=== PATIENT | female | born 1975 | race African-American/Black ===

== ENCOUNTER 2017-07-22 09:30 | Emergency (ER) | payer OTHER ==
[~2017-07-22] VITALS: Ht 160 cm; Wt 101.6 kg
[~2017-07-22 09:30] MED LIST: ACETAMINOPHEN-1 EAC1 PO; AFRIN15 ML NS; AMOXICILLIN 50500 MG PO; AUGMENTIN 875875 MG PO; BACTRIM DS TAB1 EACH PO; FLONASE 0.05%50 MCG NASAL; GLUCOPHAGE XR750 MG PO; JANUMET 50-1,01 EACH PO; LIDOCAINE VISC100 M1 SWISH&SPIT; LORATIDINE 10 M10 M1 PO; MEDROLDOSEPACK PO; NOHOMEMEDICATIONS; PREDNISONE 20 M20 M1 PO; PROMETHAZI6.25 MG/2 PO; PROMETHAZINE-D120 ML PO; ROBAXIN500 MG PO; VENTOLIN HFA 1818 GM INH; ZPAK PO
[2017-07-22 09:37] VITALS: BP 163/99
[2017-07-22] MEDS ORDERED: JANUMET 50-1,01 EACH PO (09:39)
[2017-07-22] MEDS ORDERED: PREDNISONE 20 M20 M1 PO (10:11)
[2017-07-22] MEDS ORDERED: NORCO 5-325 TA1 EACH PO (10:11)
[2017-07-22] MEDS ORDERED: VENTOLIN HFA 1818 GM INH (10:11)
[2017-07-22] MEDS ORDERED: ZPAK PO (10:11)
--- NOTE | 2017-07-22 15:48 | EKG ---
[place] [address] ELECTROCARDIOGRAM REPORT Name: EUGENIA CONNELL Room: [facility]#: [id number] Admission: 07/22/17 Attend Phys: Discharge: Date of : 77 Report #: [id number] THIS REPORT FOR: //name// [facility] ED Test Date: 2017-07-22 Test Time: 10:11:03 Pat Name: EUGENIA CONNELL Department: Room: Gender: F Tattooer: Sallie ALFORD : 1975 Requested By: Henry Bautista Order Number: [id number] MD: Cirilo Villagomez Measurements Intervals [place] Rate: 83 P: 37 PA: 118 QRS: 51 QRSD: 88 T: 58 QT: 444 QTc: 522 Interpretive Statements Sinus rhythm Borderline short PA interval Borderline T abnormalities, anterior leads Compared to ECG 08/27/2015 17:10:39 no change Electronically Signed On 07-22-2017 15:48:04 CDT by Cirilo Villagomez [email or web address] <ELECTRONICALLY SIGNED> By: Cirilo Villagomez MD, [facility] 07/22/17 1548 1011 1011 Cirilo Villagomez MD, FACC /EPI
== END 2017-07-22 10:26 | disposition home or self-care (01) ==
LOC: M.ERS 09:30
DX: J40 Bronchitis, not specified as acute or chronic (principal); E11.9 Type 2 diabetes mellitus without complications

== ENCOUNTER 2017-08-25 12:33 | Inpatient (IN) | payer OTHER ==
[~2017-08-25] VITALS: Ht 162.6 cm; Wt 102.1 kg
[~2017-08-25 12:33] MED LIST changes: +NORCO 5-325 TA1 EACH PO
[2017-08-25 12:43] VITALS: BP 143/95
[2017-08-25 13:01] LABS: URINE BILIRUBIN NEGATIVE (Negative); URINE BLOOD 1+ (Negative); URINE CLARITY CLEAR; URINE COLOR YELLOW; URINE GLUCOSE-RANDOM 2+ (Negative); URINE KETONES 1+ (Negative); URINE LEUKOCYTES-REFLEX NEGATIVE (Negative); URINE NITRITE-REFLEX NEGATIVE (Negative); URINE PROTEIN 1+ (Negative); URINE SPECIFIC GRAVITY >= 1.030 (1.005-1.030); URINE UROBILINOGEN 0.2 E.U./dl (0.2-1.0)
[2017-08-25 13:03] LABS: ABSOLUTE BASOPHILS 0.2 thou/uL (0.0-0.2); ABSOLUTE EOSINOPHILS 0.1 thou/uL (0.0-0.7); ABSOLUTE LYMPHOCYTES 2.2 thou/uL (0.8-5.3); ABSOLUTE MONOCYTES 0.4 thou/uL (0.0-1.2); ABSOLUTE NEUTROPHILS 5.6 thou/uL (1.6-8.1); BASOPHILS 2.7 %; EOSINOPHILS 0.8 %; HEMATOCRIT 38.3 % (37.0-47.0); HEMOGLOBIN 13.9 gm/dL (12.0-15.0); LYMPHOCYTES 25.8 %; MCH 31.5 pg (26.0-34.0); MCHC 36.2 g/dL (28.0-37.0); MCV 87.1 fL (80.0-100.0); MONOCYTES 4.7 %; MPV 9.8 fl. (7.2-11.1); NUCLEATED RBCS 0 /100WBC; PLATELET COUNT* 165 thou/uL (150-400); RDW-CV 13.4 % (10.5-14.5); WBC 8.5 thou/uL (4.0-11.0)
[2017-08-25 13:13] LABS: SQUAMOUS 0-3 Few /LPF (0-3)
[2017-08-25 13:14] LABS: BACTERIA-REFLEX 1-9 Few /HPF (None Seen); CASTS None Seen /LPF (None Seen); CRYSTALS None Seen /LPF (None Seen); MUCUS 0-3 Light strn/LPF (None Seen); URINE RBC 3-10 Few /HPF (0-2); URINE WBC-REFLEX 0-5 Rare /HPF (0-5)
[2017-08-25 14:31] LABS: ALBUMIN 2.9 g/dL (3.4-5.0); BUN 9 mg/dL (7-18); CALCIUM 7.3 mg/dL (8.5-10.1); CHLORIDE 100 mmol/L (98-107); CREATININE 0.8 mg/dL (0.6-1.3); GLUCOSE 356 mg/dL (70-99); LIPASE 1454 U/L (73-393); POTASSIUM 4.7 mmol/L (3.5-5.1); TOTAL BILIRUBIN 1.4 mg/dL (<0.1-1.0); TROPONIN-I LEVEL <0.06 ng/mL (<0.06)
[2017-08-25 14:36] LABS: ALKALINE PHOSPHATASE 40.7 U/L (46-116); ANION GAP 13 mmol/L (7-16); CO2 21 mmol/L (21-32)
[2017-08-25 14:38] LABS: SGPT 24.2 U/L (30-65); TOTAL PROTEIN 6.1 g/dL (6.4-8.2)
[2017-08-25 14:39] LABS: SODIUM 134 mmol/L (136-145)
[2017-08-25 14:57] LABS: SGOT 43.2 U/L (15-37)
[2017-08-25 15:59] VITALS: BP 166/94
[2017-08-25 16:00] VITALS: BP 110/68
[2017-08-25 16:59] VITALS: BP 132/91
[2017-08-25 20:00] VITALS: BP 117/73
[2017-08-25 21:43] LABS: CHOLESTEROL 294 mg/dL (<200); HDL CHOLESTEROL 30 mg/dL (>40); TC:HDL 9.8 Ratio (Not establshd)
[2017-08-25 21:45] LABS: SERUM ASSESSMENT Gross Lipemia
[2017-08-25 22:10] LABS: TRIGLYCERIDE 2477 mg/dL (<150); VLDL 495 mg/dL (<40)
[2017-08-25 22:11] LABS: LDL CHOLESTEROL ND mg/dL (<100)
--- NOTE | 2017-08-26 04:33 | NUR ---
ASSUMED CARE OF PT AT 1900 PT ALERT AND ORIENTED XX VS AND ASSESSMENT STABLE PT HAD PAIN MEDS ONCE THEN SLEPT THROUGH THE NIGHT. WILL CONTINUE PLAN OF CARE.
[2017-08-26 04:38] LABS: HEMATOCRIT 34.1 % (37.0-47.0); MCH 29.1 pg (26.0-34.0); MCHC 33.2 g/dL (28.0-37.0); MCV 87.7 fL (80.0-100.0); MPV 10.7 fl. (7.2-11.1); RBC 3.89 mil/uL (4.20-5.00); RDW-CV 13.5 % (10.5-14.5); WBC 6.8 thou/uL (4.0-11.0)
[2017-08-26 04:55] LABS: HEMOGLOBIN 11.3 gm/dL (12.0-15.0)
[2017-08-26 05:00] LABS: ALBUMIN 2.7 g/dL (3.4-5.0); CALCIUM 7.1 mg/dL (8.5-10.1); CREATININE 0.9 mg/dL (0.6-1.3); TOTAL BILIRUBIN 0.3 mg/dL (<0.1-1.0); TOTAL PROTEIN 6.3 g/dL (6.4-8.2)
[2017-08-26 05:03] LABS: POTASSIUM 3.6 mmol/L (3.5-5.1)
[2017-08-26 08:48] VITALS: BP 129/83
--- NOTE | 2017-08-26 08:50 | NUR ---
ASSUMED CARE OF PT AROUND 0730 THIS AM. REFER TO ASSESSMENT. PT GIVEN IV FENTANYL FOR EPIGASTRIC PAIN THIS AM. ABDOMINAL US ORDERED FOR THIS AM. PT CONCERNED ABOUT ACCUCHECK RESULTS AND STATES SHE HAS NEVER HAD TO MANAGE HER BLOOD SUGARS AT HOME. NO OTHER CONCERNS AT THIS TIME. CLWR. WCTM.
--- NOTE | 2017-08-26 09:13 | EKG ---
[place] [address] ELECTROCARDIOGRAM REPORT Name: EUGENIA CONNELL Room: [address] IN [facility].#: [id number] Admission: 08/25/17 Attend Phys: Shannan Moralez Discharge: Date of : 77 Report #: [id number] THIS REPORT FOR: //name// [facility] ED Test Date: 2017-08-25 Test Time: 13:00:06 Pat Name: EUGENIA CONNELL Department: Room: Gender: Cottage Attendant: Sallie MCKENZIE : 1975 Requested By: China Lozoya Order Number: [id number] MD: Stephan Piedra Measurements Intervals [place] Rate: 100 P: 35 WI: 115 QRS: 34 QRSD: 83 T: QT: 425 QTc: 549 Interpretive Statements Sinus tachycardia Borderline abnrm T, anterolateral leads Prolonged QT interval Compared to ECG 07/22/2017 10:11:03 Prolonged QT interval now present Sinus rhythm no longer present T-wave abnormality no longer present Electronically Signed On 08-26-2017 9:12:53 CDT by Stephan Piedra [email or web address] <ELECTRONICALLY SIGNED> By: Stephan Piedra MD, FAC 08/26/17 0912 1300 1300 Stephan Piedra MD, [facility] /EPI
[2017-08-26 11:48] VITALS: BP 129/83
--- NOTE | 2017-08-26 12:08 | NUR ---
TRANSPORTATION HERE FOR PT TO GO TO [place] FOR EGD AT THIS TIME. CONSENT NOT OBTAINED. PT WISHES TO SPEAK WITH PHSYCIAN FIRST.
[2017-08-26 12:51] VITALS: BP 149/92
--- NOTE | 2017-08-26 15:26 | NUR ---
PT RETURNED FROM EGD AROUND 1514. PT HAS C/O DIANE. PRN IV FENTANYL ADMINISTERED. PT GIVEN CLEAR LIQUID DIET. FAMILY AT BEDSIDE. NO OTHER CONCERNS AT THIS TIME. CLWR. WCTM.
[2017-08-26 16:10] VITALS: BP 141/85
--- NOTE | 2017-08-26 17:09 | NUR ---
PT PROGRESSING TOWARDS GOALS THIS SHIFT. EGD AND ABD US COMPLETED THIS SHIFT. PT STARTED ON MEDS FOR CHOLESTEROL. SSI TITRATED PER PROTOCOL FOR ELEVATED BLOOD SUGARS. PT'S PAIN MANAGED WITH PRN IV FENTANYL. FAMILY AT BEDSIDE THIS SHIFT. PT ADVANCED TO CLEAR LIQUID DIET THIS EVENING AND TOLERATING AT THIS TIME. NO OTHER CONCERNS AT THIS TIME. CLWR. WCTM.
[2017-08-26 20:20] VITALS: BP 149/79
[2017-08-26 22:10] LABS: GLYCOHEMOGLOBIN (HGB A1C) 10.3 % (4.8-5.6)
[2017-08-27 04:47] LABS: ALBUMIN 2.5 g/dL (3.4-5.0); CALCIUM 7.2 mg/dL (8.5-10.1); CREATININE 0.8 mg/dL (0.6-1.3); POTASSIUM 3.3 mmol/L (3.5-5.1); TOTAL BILIRUBIN 0.4 mg/dL (<0.1-1.0); TOTAL PROTEIN 6.4 g/dL (6.4-8.2)
--- NOTE | 2017-08-27 05:03 | NUR ---
PATIENT ALERT AND ORIENTED. VITALS STABLE. RA. PAIN MEDICATION GIVEN X 1, EFFECTIVE. DENIES NAUSEA. TOLERATING DIET WELL. UP INDEPENDENTLY. FLUIDS INFUSING PER ORDER. HOURLY ROUNDS. NURSING WILL CONTINUE TO MONITOR.
[2017-08-27 08:03] VITALS: BP 123/88
--- NOTE | 2017-08-27 10:08 | NUR ---
ASSUMED CARE OF PT THIS AM AROUND 0715- UPON ASSESSMENT PT NOTED TO BE RESTING IN BED, WATCHING TV- PT A&O X4- CONTINENT OF BOWEL AND BLADDER- UP AD-RAMIREZ WITH STEADY GAIT NOTED- LCTA, RESP EVEN AND UN-LABORED- VSS, O2 SAT 985 ON RA- ABDOMEN SOFT/ROUND/TENDER, BS HYPOACTIVE THIS AM- PT REPORTS LAST BM 08/25/17 TO BE HARD AND FEELS CONSTIPATED- ORDERED MIRALX GIVEN THIS AM INDICATED- PT TOLERATING CLEAR LIQUIDS THIS AM WITH DIET TO BE ADVANCED TO FULL LIQUIDS WITH LUNCH- BS MONITORED ORDERED, SSI PRESCIBED- IV TO RIGHT AC INTACT, IVF INFUSING ORDERED- BLOOD CULTURES REMAIN NEGATIVE THIS AM- PT REPORTS PAIN 2/10 TO ABDOMEN, DENIES NEED FOR PAIN MEDICATIONS- CALL LIGHT AND PERSONAL BELONGINGS WITH IN REACH- HOURLY ROUNDS IN PLACE R/T SAFETY/NEEDS- ALL NEEDS MET AT THIS TIME- WCTM
[2017-08-27] MEDS ORDERED: FENOFIBRATE160 MG PO (11:58)
[2017-08-27] MEDS ORDERED: NIACIN 500 MG500 M1 PO (11:59)
[2017-08-27] MEDS ORDERED: PROTONIX40 M1 PO (12:00)
[2017-08-27 12:56] VITALS: BP 123/88
[2017-08-27 15:57] VITALS: BP 139/94
--- NOTE | 2017-08-27 16:14 | NUR ---
PT CURRENLTY RESTING IN BED WATCHING TV- IV TO RIGHT AC NOTED TO CLOT OFF, NEW 20 GAUGE IV PLACED TO LEFT FA THIS SHIFT WITH IVF INFUSING PRESCIBED- DIET ADVANCED THIS SHIFT FROM FULL LIQUIDS WITH LUNCH TO DM DIET REGULAR FOR LUNCH- GI HERE TO ASSESS THIS SHIFT WITH GASTRIC EMPTY TEST ORDERED AND GOING TO BE COMPLETED IN AM TO EVALUATE FOR NEED FOR REGLAN- PT TO BE NPO AT MIDNIGHT FOR GET IN AM- PT REPORTS TO HAVE HAD BM X3 THIS SHIFT POST MIRALAX ADMINISTRATION THIS AM, BUT STILL REPORTS FEELING OF BLOATNESS TO UPPER ABDOMEN-NUTRITION CONSULT INTIATED THIS SHIFT FOR DM EDUCATION- CALL LIGHT AND PERSOANL BELONGINGS WITH IN REACH- ALL NEEDS MET AT THIS TIME-WCTM
--- NOTE | 2017-08-27 16:41 | NUR ---
SW met with pt to complete initial assessment, introduce self, and SW role. Pt children visiting pt. Pt alert, oriented, pleasant. Pt lives at home with children support available if needed. Pt does not anticipate any dc needs at this time. SW to follow.
[2017-08-27 20:30] VITALS: BP 146/87
--- NOTE | 2017-08-28 07:01 | NUR ---
Alert and oriented x 4. Up independently in the room. k+ was replaced and potassium was 3.9 this am. She has had nothing by mouth since midnight for gastric emptying test. Pain meds x 1 this shift. She slept well.
[2017-08-28 08:10] VITALS: BP 141/76
--- NOTE | 2017-08-28 13:09 | CON ---
[address] [address] CONSULTATION Name: EUGENIA CONNELL Room: [address] IN .R.#: [id number] Admission: 08/25/17 Attend Phys: Shannan Moralze Discharge: Date of : 77 Report #: [id number] THIS REPORT FOR: //name// CC: FAM unknown Lucia Hadley [facility] DATE OF SERVICE: 08/26/2017 ADDENDUM I had personally seen and examined the patient and reviewed labs and imaging studies. The patient with acute abdominal pain, which is mainly in the epigastric region. She presents with nausea, vomiting, which has been intermittent for several weeks. She also complains of gas, bloating and occasional constipation. Since admission, the patient was found to have elevated lipase and some thickening in the distal stomach and proximal small bowel. We will perform an upper endoscopy to further evaluate these findings. Meanwhile, we will continue to monitor labs and make sure that the lipase will normalize. Note that the liver enzymes are within normal limits, but the patient's triglyceride is near 2500. Her pancreatitis is most probably due to her triglyceridemia. <ELECTRONICALLY SIGNED> By: Lobito Weems MD 08/28/17 1309 1347 0004Farmaritza Weems MD /nt
--- NOTE | 2017-08-28 13:09 | CON ---
[address] [address] CONSULTATION Name: EUGENIA CONNELL Room: [address] IN .R.#: [id number] Admission: 08/25/17 Attend Phys: Shannan Moralez Discharge: Date of : 77 Report #: [id number] THIS REPORT FOR: //name// CC: FAM unknown Archie Hadley [facility] DICTATED BY: Gemma ROSAS DATE OF SERVICE: 08/26/2017 PRIMARY CARE PHYSICIAN: Dr. Archie Chapman. Please note at the time of this dictation, the patient was seen and physically examined by myself. REASON FOR CONSULTATION: Abdominal pain and nausea and elevated lipase. HISTORY OF THE PRESENT ILLNESS: This 41-year-old female presented to the Emergency Room with ongoing right upper quadrant pain and epigastric pain, which had progressively been getting worse over the last 3 days. The patient states she has had a horrible diet, eating everything including some very high fat foods. She also admits that she has been on 2 separate occasions, she was on Augmentin back earlier in the year and then most recently, Z-MARIAM for this ongoing sinus and bronchitis. She states she has not been feeling well for the past week to two weeks on top of all of this. She also complains that she has had a lot of gas and bloating for some time. She did take some digestive enzymes, which she states did help, but she has quit doing so some time ago. The patient has never seen a GI provider before or had any scopes. She states in the past she was told she had some acid reflux and she did take some medicine for that, but she has not been doing so for some time. ALLERGIES: No known drug allergies. MEDICATIONS: From home include Janumet one daily. PAST MEDICAL HISTORY: Diabetic. PAST SURGICAL HISTORY: None. FAMILY HISTORY: Mother had breast cancer and maternal grandmother had stomach issues. SOCIAL HISTORY: She does use alcohol on special occasions. Denies any alcohol or illegal [place] [address] CONSULTATION Name: EUGENIA CONNELL Room: [address] [place] [facility]#: [id number] Admission: 08/25/17 Attend Phys: Shannan Moralez Discharge: Date of : 77 Report #: [id number] REVIEW OF SYSTEMS: Twelve-point review of systems is essentially negative except what is mentioned in the HPI. PHYSICAL EXAMINATION: VITAL SIGNS: Temperature 37.6, pulse 103, respirations 15 and blood pressure 129/83. HEART: Regular rate and rhythm. LUNGS: Clear. ABDOMEN: Soft. Positive bowel sounds in all 4 quadrants with right upper quadrant to epigastric tenderness noted to palpation. LABORATORY DATA: Hemoglobin is 11.3, hematocrit 34.1, white count is 6.8 and platelets 131. Sodium 139, potassium 3.6, chloride 105, CO2 26, BUN is 7, creatinine 0.9, GFR is 84 and glucose is 266. Total bilirubin on admission was 1.4 and she is down to 0.3, alkaline phosphatase 40 and is 43 now, ALT was 24 and she is now 28, AST was 43 and she is now 22, lipase was 1454 and triglycerides were 2477. RADIOLOGICAL DATA: CT of the abdomen and pelvis showed some mild thickening of the distal stomach and proximal bowel as well. Also, ultrasound showed diffuse hepatic steatosis noted. IMPRESSION: 1. Abdominal pain. 2. Elevated lipase. 3. Elevated triglycerides. 4. Elevated liver function tests. 5. Thrombocytopenia. 6. Gas and bloating. 7. CT changes noted the thickening of the distal stomach and proximal bowel wall. PLAN: 1. Increase fluids 250 mL an hour. 2. EGD with Dr. Weems. 3. Consider hepatobiliary scan if above is negative. 4. Further recommendations to be made once Dr. Weems performs EGD. 5. The patient will need to be on medications for her triglycerides. Thank you for allowing us to participate in this patient's care. Please do not hesitate to call with any questions in regard to this consult. ADDENDUM I had personally seen and examined the patient and [place] [address] CONSULTATION Name: EUGENIA CONNELL Room: [address] IN ..#: [id number] Admission: 08/25/17 Attend Phys: Shannan Moralez Discharge: Date of : 77 Report #: [id number] studies. The patient with acute abdominal pain, which is mainly in the epigastric region. She presents with nausea, vomiting, which has been intermittent for several weeks. She also complains of gas, bloating and occasional constipation. Since admission, the patient was found to have elevated lipase and some thickening in the distal stomach and proximal small bowel. We will perform an upper endoscopy to further evaluate these findings. Meanwhile, we will continue to monitor labs and make sure that the lipase will normalize. Note that the liver enzymes are within normal limits, but the patient's triglyceride is near 2500. Her pancreatitis is most probably due to her triglyceridemia. <ELECTRONICALLY SIGNED> By: Lobito Weems MD 08/28/17 1309 1149 [id number] Weems MD /nt
[2017-08-28 16:04] VITALS: BP 149/89
[2017-08-28 16:19] VITALS: BP 123/88
--- NOTE | 2017-08-28 17:29 | NUR ---
PATIENT LEFT UNIT AT 1730 AMBULATORY WITH DAUGHTER. EDUCATED PATIENT AND DAUGHTER ON DISCHARGE INSTRUCTIONS AND NEW MED SCRIPTS. PATIENT AND DAUGHTER VERBALIZED UNDERSTANDING. IV DC'D. ALL BELONGINGS LEFT WITH PATIENT.
== END 2017-08-28 17:40 | disposition home or self-care (01) | DRG 439 ==
LOC: M.ERS 12:33 → M.ORTHSURG 15:29 → M.TBA-ER 15:29 → M.ORTHSURG 15:52
PROVIDERS: Physician Assistant; ADMIT Internal Medicine
PROC: 0DJ08ZZ Inspection of Upper Intestinal Tract, Via Natural or Artificial Opening Endoscopic (ICD-10-PCS; principal; 2017-08-26)
DX: K85.10 Biliary acute pancreatitis without necrosis or infection (principal); B17.9 Acute viral hepatitis, unspecified; D69.6 Thrombocytopenia, unspecified; K44.9 Diaphragmatic hernia without obstruction or gangrene; E78.00 Pure hypercholesterolemia, unspecified; E78.1 Pure hyperglyceridemia; K29.70 Gastritis, unspecified, without bleeding; E11.65 Type 2 diabetes mellitus with hyperglycemia; K29.80 Duodenitis without bleeding; Z79.84 Long term (current) use of oral hypoglycemic drugs; Z79.899 Other long term (current) drug therapy; Z80.3 Family history of malignant neoplasm of breast; Z84.89 Family history of other specified conditions